=== PATIENT | male | born 1950 | race African-American/Black ===

== ENCOUNTER → 2023-04-25 09:41 | Outpatient (REF) | payer OTHER, SELFPAY | LOC: RAD 09:41 | PROVIDERS: ATTENDING PHYSICIAN Physician Assistant; FAMILY PHYSICIAN Family Medicine | DX: I65.22 Occlusion and stenosis of left carotid artery (principal) | CPT/HCPCS: 93880 ==

== ENCOUNTER 2023-07-18 10:02 | Emergency (ER) | payer OTHER, SELFPAY ==
[2023-07-18 10:14] VITALS: BP 151/97
[2023-07-18 10:38] LABS: % Basophils 0.5 % (0-2); % Immature Granulocytes 0.2 % (0-0.5); % Lymphocytes 23.9 % (20.5-51.1); % Monocytes 9.2 % (1.7-9.3); % Neutrophils 64.2 % (42.2-75.2); Absolute Eosinophils 0.1 10^3/uL (0-0.7); Absolute Lymphocytes 1.4 10^3/uL (1.2-3.4); Absolute Monocytes 0.5 10^3/uL (0.1-0.6); Absolute Neutrophils 3.8 10^3/uL (1.4-6.5); Hematocrit 47.9 % (39.0-52.0); Hemoglobin 16.5 g/dL (13.0-18.0); Mean Corp Hgb Conc. 34.4 g/dL (33.0-37.0); Mean Corpuscular Hgb 31.6 pg (27.0-31.0); Mean Corpuscular Volume 91.8 fL (80.0-94.0); Mean Platelet Volume 9.9 fL (7.4-10.4); Nucleated Red Blood Cells % 0 % (-); Platelet Count 179 10^3/uL (130-400); Red Blood Cell Count 5.22 10^6/uL (4.70-6.10); Red Cell Dist. Width 12.9 % (11.5-14.5); White Blood Cell Count 5.9 10^3/uL (4.8-10.8)
[2023-07-18 10:57] LABS: ALT (SGPT) 17 U/L (0-50); AST (SGOT) 21 U/L (17-59); Albumin 4.2 g/dl (3.5-5.0); Alkaline Phosphatase 96 U/L (38-126); Blood Urea Nitrogen 19 mg/dl (9-20); Calcium 9.7 mg/dl (8.4-10.2); Carbon Dioxide 25 mmol/L (22-30); Chloride 108 mmol/L (98-107); Glucose 108 mg/dl (70-99); Potassium 4.3 mmol/L (3.5-5.1); Sodium 139 mmol/L (135-145); Total Bilirubin 0.5 mg/dl (0.2-1.3); Total Protein 7.3 g/dl (6.3-8.2); eGFR > 60.00
[2023-07-18 11:02] LABS: Troponin I < 0.012 ng/ml
[2023-07-18 11:45] VITALS: BMI 25.1
[2023-07-18 11:50] VITALS: BP 151/84
--- NOTE | 2023-07-18 11:54 | ED.GENMED ---
History of Present Illness
General
Chief Complaint: Chest Pain
Time Seen by Provider: 07/18/23 11:32
Travel History
Have you had any contact with someone who has COVID-19?: No
Do you have any symptoms of coronavirus? Fever > 100 degrees, chills, cough, shortness of breath, sore throat, loss of taste or smell, muscle aches, or headache?: No
History of Present Illness
History of Present Illness:
Suicidal male presents the emergency department for evaluation of left-sided chest pain ongoing for the past week. Pain is not exertional and is worse with palpation and worse after eating. Denies any shortness of breath or pleuritic nature of the
pain. No fevers or chills.
Past History
Past History
ED Past Medical History: HTN and Hypercholesterolemia
ED Past Surgical History: None
Social History
Tobacco: Non-smoker
Alcohol: None
Drug: None
Personal: Single
Review of Systems
Review of Systems
Allergies reviewed?: Yes
All Other Systems: ROS reviewed and negative except as documented in HPI and ROS
Phy Exam
Physical Exam
Physical Exam:
GEN: Well appearing, NAD, WDWN
HEENT: Oral mucosa moist, no scleral icterus
Cardiac: Regular rate and rhythm, no murmurs, left-sided chest pain reproducible on exam
Lung: No respiratory distress, no tachypnea
MSK: No gross deformity or injuries
Skin: Good color, no pallor or jaundice, no rashes
Neuro: AO x3, moves all extremities freely
Psych: Calm, cooperative
Scores
Heart Score for Chest Pain Patients
STEMI patient?: No
History: Slightly or Non-Suspicious
ECG: Nonspecific Repolarization
Age: >/= 65 years
Risk Factors: 1 or 2 Risk Factors
Troponin: </= Normal Limit
Heart Score for Chest Pain Patients: 4
Heart Score Risk: 20.3% MACE over next 6 weeks
Course
Orders/Labs/Results
Orders:
Orders
07/18/23 10:18
Electrocardiogram (*1) Urgent
Reason for Study: Chest Pain
EKG- Treatment ONCE
07/18/23 10:31
CMP [Comprehensive Metabolic Panel] Urgent
Complete Blood Count/With Diff Urgent
Troponin I Urgent
07/18/23 12:34
CR Chest - 2 Views Urgent
Comment:
Reason For Exam: chest pain
07/18/23 13:15
CARDIOLOGY CONSULT Urgent
Consulting Provider: Joss De Oliveira
Was physician already notified: Yes
Abnormal Lab Results
07/18/23
10:31
MCH 31.6 H pg
(27.0-31.0)
Chloride 108 H mmol/L
(98-107)
Glucose 108 H mg/dl
(70-99)
07/18/23 10:31
07/18/23 10:31
Vital Signs
Initial and Last Documented VS:
Initial Vital Signs
Temp Pulse Resp BP Pulse Ox
97.8 F 65 16 151/97 96
07/18/23 10:14 07/18/23 10:14 07/18/23 10:14 07/18/23 10:14 07/18/23 10:14
Last Documented Vital Signs
Temp Pulse Resp BP Pulse Ox
97.8 F 76 18 151/89 96
07/18/23 10:14 07/18/23 14:17 07/18/23 14:17 07/18/23 14:17 07/18/23 11:50
MDM/Problems Addressed
MDM/Problems Addressed:
Patient did have biphasic T waves in V6 that are new compared to past EKGs. He has a negative troponin and his clinical story is not consistent with angina. I did discuss the EKG changes with cardiology who evaluated him at the bedside and will
coordinate for outpatient urgent stress test. No indication for antianginal therapy at this time.
*Critical Care Note
Total Time (30-74mins, 75-104mins- exclusive of procedures): Not Applicable
ED Attending Note
-
Portions of this chart may have been created with voice recognition software.� Occasional wrong word or��sound alike� substitutions may have occurred due to the inherent limitations of voice recognition software.
Discharge Plan
Departure
Patient Disposition: Home (Routine Discharge)
Date of Disposition: 07/18/23
Time of Disposition: 14:54
Patient with high blood pressure during this ER visit?: No
Discharge Problem:
Atypical chest pain
Instructions: Costochondritis (DC)
Prescriptions:
No Action
Allergies Dropps
1 dose PO DAILY
multivitamin Tablet
1 tab PO DAILY
cetirizine [Zyrtec] 10 mg Tablet
5 - 10 mg PO DAILY PRN (Reason: allergies)
prednisone 5 mg Tablet
5 mg PO DIRECTED PRN (Reason: allergies)
amlodipine 2.5 mg Tablet
2.5 mg PO DAILY
aspirin 81 mg Tablet,Chewable
81 mg PO DAILY
tadalafil [Cialis] 20 mg Tablet
20 mg PO DAILY PRN (Reason: sex)
mecobalamin (vitamin B12) [B12 Active] 1,000 mcg Tablet,Chewable
1,000 mcg PO DAILY
Male Inhancement
1 tab PO DAILY PRN (Reason: sex)
Nitrous Oxide
1 tab PO PRN PRN (Reason: sex)
Vitamin C
1 tab PO DAILY
Vitamin D3
1 tab PO DAILY
Referrals:
Joss De Oliveira MD [Active] -
Jean Wilson DO [Family Provider] -
Activity Restrictions/Additional Instructions:
Try using Salonpas once daily for pain relief
Follow up with Dr De Oliveira as we discussed
Interventions
Interventions:
*Risk Screen - Suicide Last Done: 07/18/23 11:45
*General Assessment Last Done: 07/18/23 10:14
*Neglect/Abuse Screening Last Done: 07/18/23 11:45
ED- Fall Risk Assessment Last Done: 07/18/23 15:07
*ED COVID-19 Vaccine History Last Done: 07/18/23 10:14
*Nursing Disposition Last Done: 07/18/23 15:07
ED- Cardiac Assessment Last Done: 07/18/23 11:45
Discharge Date and Time
Discharge Date/Time: 07/18/23 15:07
Print Language: KYRGYZ
--- NOTE | 2023-07-18 13:48 | CON.CAR ---
Addendum entered and electronically signed by Joss De Oliveira MD 07/18/23 15:25:
73 yo male with PMH of carotid stenosis, s/p L CEA, moderately elevated calcium presents to ED with chest pain. He reports there is a pain near the left side of his sternum, which worsens with palpation. There is also a pressure in his left chest
that worsens with eating. It has been occurring intermittently for weeks. The pain does not occur when he rides his bike. Exam with RRR, no murmurs, no edema. TnI <0.012. EKG: NSR, anterolateral T wave abnormality.
Chest pain. Seems mostly atypical, and does not occur with riding his bike. Anterolateral T wave abnormality is new. TnI is <0.012. Does not seem to be ACS. He does have risk factors for CAD. We discussed options, and decided we will pursue
outpatient stress test this week. If pain becomes exertional, he will return to ED.
Addendum entered and electronically signed by KATHY Zarco 07/18/23 15:07:
Dr. De Oliveira and I saw patient together and office will call to arrange below.
Original Note:
Consultation
Consultation Request
Date/Time Consultation Requested: 07/18/23 1315
Date/Time Consultation Performed: 07/18/23 1330
Requesting Provider: Ej Zepeda PA-C
Performing Provider: Rohini CHAVEZ for Dr. De Oliveira
Reason for Consultation: chest discomfort
Medical History
-
Chief Complaint: chest discomfort.
History of Present Illness:
73 y/o male with hypertension, dyslipidemia, pre-DM, and carotid artery disease with hx L CEA who is here from his PCP office for evaluation. Briefly, he recently was in [place] for a work trip about 2 weeks ago. After a week later, he started to
notice some left-sided chest pressure intermittently. It is not associated with exertion. He does think it often happens after meals. He is not sure how many times it happens per day. He is sore to palpation. He denies any SOB, but has had a head
cold recently. He went to his PCP today and EKG showed T wave changes laterally. Troponin here is normal. He is in no distress at the time of my assessment.
Past Medical History
Past Medical History: HTN, Hypercholesterolemia, NIDDM and Other (carotid disease)
Social History
Tobacco: Non-Smoker
Employment: Employed
Family History
Family History: CAD (mom with coronary stents)
Allergies / Home Medications
Allergy/AdvReac Type Severity Reaction Status Date / Time
omeprazole [From Prilosec] Allergy tight Verified 07/18/23 10:18
chest
tight
throat
pollen extracts Allergy hayfever Verified 07/18/23 10:18
�Medication �Instructions �Recorded �Confirmed �Type
Allergies Dropps 1 dose PO DAILY 08/25/22 08/31/22 History
Male Inhancement 1 tab PO DAILY PRN sex 08/25/22 08/31/22 History
Nitrous Oxide 1 tab PO PRN PRN sex 08/25/22 08/31/22 History
Vitamin C 1 tab PO DAILY Supplement 08/25/22 08/31/22 History
Vitamin D3 1 tab PO DAILY Supplement 08/25/22 08/31/22 History
amlodipine 2.5 mg tablet 2.5 mg PO DAILY Blood Pressure 08/25/22 08/31/22 History
aspirin 81 mg chewable tablet 81 mg PO DAILY Blood Clot 08/25/22 08/31/22 History
Prevention/Tx
cetirizine 10 mg tablet (Zyrtec) 5 - 10 mg PO DAILY PRN allergies 08/25/22 08/31/22 History
mecobalamin (vitamin B12) 1,000 1,000 mcg PO DAILY Supplement 08/25/22 08/31/22 History
mcg chewable tablet (B12 Active)
multivitamin 1 tab PO DAILY Supplement 08/25/22 08/31/22 History
prednisone 5 mg tablet 5 mg PO DIRECTED PRN allergies 08/25/22 08/31/22 History
tadalafil 20 mg tablet (Cialis) 20 mg PO DAILY PRN sex 08/25/22 08/25/22 History
Review of Systems
-
History Source: Patient
All other systems: Negative unless noted
Constitutional: Other ('head cold' with sore throat and stuffiness)
Cardiac: Chest Pain
Physical Exam
Vital Signs
Temp Pulse Resp BP Pulse Ox
97.8 F 67 16 151/84 96
07/18/23 10:14 07/18/23 11:50 07/18/23 11:50 07/18/23 11:50 07/18/23 11:50
Lab Results
07/18/23 10:31
07/18/23 10:31
Troponin I < 0.012 ng/ml 07/18/23 10:31
Physical Exam
General: Well Developed, Well Nourished and No Apparent Distress
HEENT: Normocephalic and Anicteric
Respiratory: Clear and Non Labored Respirations
Cardiac: Regular Rhythm
Breast: Deferred by me
GI: Soft, Non Distended and Normal Bowel Sounds
Musculoskeletal: No Edema
Skin: Warm and Dry
Neuro: AO x 3
Psych: Calm
Impression / Plan
-
Chest discomfort:
-etiology unclear
-description as detailed in HPI
-trop is normal
-EKG with t wave changes as noted
-would recommend OP nuclear exercise stress test this week- will have office call to arrange
HTN:
-stable
-continue CCB
Dyslipidemia:
-does not tolerate statins, also reports he did not tolerate Repatha (all myalgias)
-Dr. Ortiz considering bempedoic acid or inclisiran next
hx carotid artery disease:
-stable s/p CEA
-follows with Dr. Carver
-on ASA
Data Reviewed
-
EKG: Tracing Personally Visualized and interpreted (SR with non-specific t abnormality V5-V6)
Medical Tests (Nuc Med, Echo etc): Report Reviewed by me (stress test (echo) 10/06/21: Normal Stress Echocardiogram with normal hemodynamic response to exercise. Overall, low risk stress test. Abnormal ECG response to exercise. ECG was abnormal
in exercise nuclear stress test from 2011 as well. Stress imaging is low risk.)
Labs: Labs Reviewed by me
[2023-07-18 14:17] VITALS: BP 151/89
== END 2023-07-18 15:07 | disposition home or self-care (01) ==
LOC: EMR 10:02
PROVIDERS: CONSULT PHYSICIAN Internal Medicine; EMERGENCY PHYSICIAN Emergency Medicine; FAMILY PHYSICIAN Family Medicine
DX: R07.89 Other chest pain (principal); I10 Essential (primary) hypertension; E78.00 Pure hypercholesterolemia, unspecified
CPT/HCPCS: 99285; 71046; 80053; 84484; 85025; 93005

== ENCOUNTER → 2023-07-22 08:04 | Outpatient (REF) | payer OTHER, SELFPAY | LOC: DHCBC/DCA 08:04 | PROVIDERS: ATTENDING PHYSICIAN Internal Medicine Cardiovascular Disease; FAMILY PHYSICIAN Family Medicine | DX: R94.31 Abnormal electrocardiogram [ECG] [EKG] (principal) | CPT/HCPCS: 78452; 93017; A9500 ==

== ENCOUNTER → 2023-10-12 07:47 | Outpatient (REF) | payer OTHER, SELFPAY | LOC: HWRAD 07:47 | PROVIDERS: ATTENDING PHYSICIAN Urology; FAMILY PHYSICIAN Family Medicine | DX: R10.84 Generalized abdominal pain (principal) | CPT/HCPCS: 76775 ==

== ENCOUNTER → 2023-10-18 10:03 | Outpatient (REF) | payer OTHER, SELFPAY | LOC: RAD 10:03 | PROVIDERS: ATTENDING PHYSICIAN Surgery Vascular Surgery; FAMILY PHYSICIAN Family Medicine | DX: I65.22 Occlusion and stenosis of left carotid artery (principal) | CPT/HCPCS: 93880 ==

== ENCOUNTER → 2023-11-28 09:29 | Outpatient (REF) | payer OTHER, SELFPAY | LOC: HWRAD 09:29 | PROVIDERS: ATTENDING PHYSICIAN Family Medicine | DX: M25.532 Pain in left wrist (principal); M25.512 Pain in left shoulder | CPT/HCPCS: 73030; 73100 ==

== ENCOUNTER 2024-02-09 16:23 | Emergency (ER) | payer OTHER, SELFPAY ==
[2024-02-09 16:25] VITALS: BP 147/92
--- NOTE | 2024-02-09 16:59 | ED.GENMED ---
History of Present Illness
<Kinza Hercules PA-C - Last Filed: 02/09/24 20:35>
General
Chief Complaint: Dizziness
Source: patient
Exam Limitations: none
Time Seen by Provider: 02/09/24 16:29
Nursing documentation reviewed up to this point in time: agreed with
History of Present Illness
History of Present Illness:
Patient is a 73 year old male with hx HTN, prostate cancer presenting to the emergency department for multiple complaints today. He states that he has had ongoing lightheadedness over the past few months which has become more frequent. He states
that he notices the symptoms most prominently when he goes from sitting to standing or with quick turn of his head. Patient denies any true dizziness/spinning sensation. No associated diplopia, dysarthria, ataxia. Patient has been following with
his primary care regarding this and is scheduled to see neurology next year.
In addition�patient states that he was recently treated for a yeast infection of his penis. That has since cleared although now he is having a burning sensation with urination. He did take Azo for 2 days without much improvement. He also feels as
if he is here frequently.
Lastly�patient states that he has been increasingly nauseous after eating for the past many months. He feels that he is losing weight because of this. He denies any associated fever, chills, abdominal pain, or changes in bowel movements.
Past History
<Kinza Hercules PA-C - Last Filed: 02/09/24 20:35>
Past History
ED Past Medical History: HTN and Hypercholesterolemia
ED Past Surgical History: None
Social History
Tobacco: Non-smoker
Alcohol: None
Drug: None
Personal: Single
Review of Systems
<Kinza Hercules PA-C - Last Filed: 02/09/24 20:35>
Review of Systems
Allergies reviewed?: Yes
All Other Systems: ROS reviewed and negative except as documented in HPI and ROS
Phy Exam
<Kinza Hercules PA-C - Last Filed: 02/09/24 20:35>
Physical Exam
Physical Exam:
Vitals: Mildly hypertensive, otherwise vital signs stable. Afebrile
General: Patient is well appearing, no acute distress. Nontoxic appearing
Skin: Warm and dry, no rashes or lesions
Head: Normocephalic, atraumatic
Eyes: Sclera nonicteric. EOMs intact. No nystagmus. Visual goodwin intact
Throat: Protecting airway
Neck: Normal ROM, no cervical spine tenderness, no meningismus
Cardiac: Regular rate and rhythm, no murmurs.
Pulm: Normal respiratory effort, no wheezes, rales, rhonchi heard on exam.
Abdomen: Abdomen soft. No abdominal tenderness. Nondistended.
: Uncircumcised. No phimosis or paraphimosis. Very mild erythema of the ureteral meatus. No purulent urethral discharge. No inguinal lymphadenopathy.
Extremities: No evidence of cyanosis or edema. Palpable DP pulses
Neuro: AAOx3. Grossly intact.
Psychiatric: Normal affect.
Course
<Kinza Hercules PA-C - Last Filed: 02/09/24 20:35>
Orders/Labs/Results
Orders:
Orders
02/09/24 16:46
Electrocardiogram (*1) Urgent
Reason for Study: Vertigo / Dizzy
EKG- Treatment ONCE
Orthostatic VS- Treatment ONCE
02/09/24 17:54
Complete Blood Count/With Diff Urgent
Comprehensive Metabolic Panel Urgent
Urinalysis Reflex To Culture Urgent
Date Specimen was Collected: 02/09/24
Time Specimen was Collected: 17:30
Chlamydia/GC by PCR Urgent
MARY Source: U
Specimen Description:
Date Specimen was Collected: 02/09/24
Time Specimen was Collected: 17:30
Comment: ADD ON
Urine Culture Urgent
MARY Source: U
Specimen Description:
Date Specimen was Collected: 02/09/24
Time Specimen was Collected: 17:30
Comment: ADD ON
02/09/24 19:07
Add On - Microbiology Urgent
Tests Added?: urine culture
02/09/24 19:28
Doxycycline [Vibramycin] 100 mg PO NOW STA
02/09/24 19:34
Add On - Microbiology Urgent
Tests Added?: urine GC/chlamydia
Abnormal Lab Results
02/09/24
17:54
MCV 97.2 H fL
(80.0-94.0)
MCH 32.2 H pg
(27.0-31.0)
02/09/24 17:54
02/09/24 17:54
Vital Signs
Initial and Last Documented VS:
Initial Vital Signs
Temp Pulse Resp BP Pulse Ox
98.2 F 73 16 147/92 98
02/09/24 16:25 02/09/24 16:25 02/09/24 16:25 02/09/24 16:25 02/09/24 16:25
Last Documented Vital Signs
Temp Pulse Resp BP Pulse Ox
98.2 F 74 16 145/97 96
02/09/24 16:25 02/09/24 19:58 02/09/24 19:58 02/09/24 19:58 02/09/24 19:58
<Kwasi Martinez, DO - Last Filed: 02/09/24 19:08>
Orders/Labs/Results
Orders:
Orders
02/09/24 16:46
Electrocardiogram (*1) Urgent
Reason for Study: Vertigo / Dizzy
EKG- Treatment ONCE
Orthostatic VS- Treatment ONCE
02/09/24 17:54
Complete Blood Count/With Diff Urgent
Comprehensive Metabolic Panel Urgent
Urinalysis Reflex To Culture Urgent
Date Specimen was Collected: 02/09/24
Time Specimen was Collected: 17:30
Chlamydia/GC by PCR Urgent
MARY Source: U
Specimen Description:
Date Specimen was Collected: 02/09/24
Time Specimen was Collected: 17:30
Comment: ADD ON
Urine Culture Urgent
MARY Source: U
Specimen Description:
Date Specimen was Collected: 02/09/24
Time Specimen was Collected: 17:30
Comment: ADD ON
02/09/24 19:07
Add On - Microbiology Urgent
Tests Added?: urine culture
02/09/24 19:28
Doxycycline [Vibramycin] 100 mg PO NOW STA
02/09/24 19:34
Add On - Microbiology Urgent
Tests Added?: urine GC/chlamydia
Abnormal Lab Results
02/09/24
17:54
MCV 97.2 H fL
(80.0-94.0)
MCH 32.2 H pg
(27.0-31.0)
02/09/24 17:54
02/09/24 17:54
Vital Signs
Initial and Last Documented VS:
Initial Vital Signs
Temp Pulse Resp BP Pulse Ox
98.2 F 73 16 147/92 98
02/09/24 16:25 02/09/24 16:25 02/09/24 16:25 02/09/24 16:25 02/09/24 16:25
Last Documented Vital Signs
Temp Pulse Resp BP Pulse Ox
98.2 F 74 16 145/97 96
02/09/24 16:25 02/09/24 19:58 02/09/24 19:58 02/09/24 19:58 02/09/24 19:58
<Kinza Hercules PA-C - Last Filed: 02/09/24 20:35>
MDM/Problems Addressed
Differential Diagnosis Includes:
Not limited to: Viral illness, dehydration, orthostatic hypotension, UTI, urethritis, etc.
MDM/Problems Addressed:
73-year-old male with history as documented presenting with dysuria following recent treatment for balanitis. No fever, chills. No abdominal pain. Does note some chronic lightheadedness and nausea although denies any true spinning sensation. No
other neurologic symptoms. Patient mildly hypertensive, otherwise vital signs are stable. He is afebrile. Physical exam as above. Patient very well-appearing, conversational and nontoxic. Cardio/pulmonary assessment unremarkable. No focal
neurologic deficits. Patient without any true dizzy/spinning sensation. He is ambulating without difficulty and room to/from bathroom. Do not suspect central process. Will check basic labs, urine. Will obtain EKG and check orthostatic vital signs.
Update: Orthostatic vital signs obtained without any evidence of orthostasis. Labs noted. No clinically significant abnormalities. Chemistry normal. Do not suspect acute intra-abdominal process given patient is afebrile with no leukocytosis.
Feel patient is stable for discharge from the standpoint with primary care follow-up.
Urine shows no signs of infection. Into discuss findings with patient who now expresses that he has concern for possible STD after recent separation from . Given recently treated balanitis and mild erythema of urethral meatus without any
purulent discharge�will treat patient for urethritis. Do not suspect gonococcal urethritis. Will add on GC/chlamydia to urine specimen. Will start patient on doxycycline pending chlamydia results. He will follow closely with urology. Advised to
continue using topical ointments as recommended by urology.
Chronic conditions affecting care:
Hypertension
Acute Exacerbation and/or Progression of Chronic Illness:
Acutely hypertensive
<Kinza Hercules PA-C - Last Filed: 02/09/24 20:35>
*Pulse Oximetry
Patient hypoxic: no
*EKG
Interpreted by ED Provider?: Yes
EKG Intrepretation Date: 02/09/24
Interpretation: abnormal
Comparison EKG: no changes
Heart Rate: 67
Rate: normal
Rhythm: sinus
Darling: normal axis
Interval: normal QT interval
QRS Pattern: normal QRS
Ischemia: non-specific ST changes
*Pipe Connector Interpretation
Rate: Pipe Connector- N/A
*Critical Care Note
Total Time (30-74mins, 75-104mins- exclusive of procedures): Not Applicable
ED Attending Note
<Kinza Hercules PA-C - Last Filed: 02/09/24 20:35>
-
Portions of this chart may have been created with voice recognition software.� Occasional wrong word or��sound alike� substitutions may have occurred due to the inherent limitations of voice recognition software.
<Kwasi Martinez DO - Last Filed: 02/09/24 19:08>
ED Attending Note
Patient seen and examined by attending physician: Yes
I performed the substantive portion of visit, reviewed & personally made and approve the management plan that is documented in note by myself or CHRISTIN.: Yes
ED Attending Note:
Seen with RUSS examined independently 73-year-old male uncircumcised multiple complaints dizziness when standing, also pain in his penis, treated with a sounds of balanitis
Discharge Plan
Departure
Patient Disposition: Home (Routine Discharge)
Date of Disposition: 02/09/24
Time of Disposition: 19:29
Patient with high blood pressure during this ER visit?: Yes
Condition: Good
Covid-19: Not Applicable
Discharge Problem:
Urethritis
Instructions: Urethritis (DC), BLOOD PRESSURE
Prescriptions:
New
doxycycline hyclate 100 mg tablet
100 mg PO BID 7 Days Qty: 14 0RF
No Action
Allergies Dropps
1 dose PO DAILY
multivitamin Tablet
1 tab PO DAILY
cetirizine [Zyrtec] 10 mg Tablet
5 - 10 mg PO DAILY PRN (Reason: allergies)
prednisone 5 mg Tablet
5 mg PO DIRECTED PRN (Reason: allergies)
amlodipine 2.5 mg Tablet
2.5 mg PO DAILY
aspirin 81 mg Tablet,Chewable
81 mg PO DAILY
tadalafil [Cialis] 20 mg Tablet
20 mg PO DAILY PRN (Reason: sex)
mecobalamin (vitamin B12) [B12 Active] 1,000 mcg Tablet,Chewable
1,000 mcg PO DAILY
Male Inhancement
1 tab PO DAILY PRN (Reason: sex)
Nitrous Oxide
1 tab PO PRN PRN (Reason: sex)
Vitamin C
1 tab PO DAILY
Vitamin D3
1 tab PO DAILY
Referrals:
Jean Wilson DO [Family Provider] -
Activity Restrictions/Additional Instructions:
Return to the emergency department with any fevers, chills, intractable nausea/vomiting, inability tolerate food/, inability to urinate, worsening in current symptoms, or any other concerns
-As discussed�we have added a test to your urine sample. Will call you if this is positive.
-An antibiotic has been sent to your pharmacy for you to take twice a day for the next week. Continue to apply your ointment to your penis as directed by your urologist. You should follow-up with your urologist in the next few days for further
evaluation/management
-It is important to stay well-hydrated.
-Follow-up with your urologist for further evaluation/management. In addition�you should follow-up with your primary care doctor
Monitor your symptoms closely and return to the emergency department with any acute worsening/new symptoms or any other concerns
Interventions
Interventions:
*Risk Screen - Suicide Last Done: 02/09/24 16:25
*General Assessment Last Done: 02/09/24 17:48
*Neglect/Abuse Screening Last Done: 02/09/24 16:25
ED- Fall Risk Assessment Last Done: 02/09/24 17:48
*ED COVID-19 Vaccine History Last Done: 02/09/24 17:48
*Nursing Disposition Last Done: 02/09/24 20:01
ED- Cardiac Assessment Last Done: 02/09/24 17:48
ED- Neurological Assessment Last Done: 02/09/24 17:48
ED Swallowing Screen Last Done: 02/09/24 17:48
Discharge Date and Time
Discharge Date/Time: 02/09/24 20:02
Print Language: ICELANDIC
[2024-02-09 17:27] VITALS: BP 143/80; BP 146/81; BP 148/79; PULSE 68; PULSE 75
[2024-02-09 17:48] VITALS: BMI 24.0
[2024-02-09 18:01] LABS: % Basophils 0.3 % (0-2); % Immature Granulocytes 0.2 % (0-0.5); % Lymphocytes 22.6 % (20.5-51.1); % Neutrophils 66.9 % (42.2-75.2); Absolute Eosinophils 0.1 10^3/uL (0-0.7); Absolute Lymphocytes 1.3 10^3/uL (1.2-3.4); Absolute Monocytes 0.5 10^3/uL (0.1-0.6); Absolute Neutrophils 3.9 10^3/uL (1.4-6.5); Hemoglobin 15.9 g/dL (13.0-18.0); Mean Corp Hgb Conc. 33.1 g/dL (33.0-37.0); Mean Corpuscular Hgb 32.2 pg (27.0-31.0); Mean Corpuscular Volume 97.2 fL (80.0-94.0); Mean Platelet Volume 10.2 fL (7.4-10.4); Nucleated Red Blood Cells % 0 % (-); Platelet Count 172 10^3/uL (130-400); Red Blood Cell Count 4.94 10^6/uL (4.70-6.10); White Blood Cell Count 5.8 10^3/uL (4.8-10.8)
[2024-02-09 18:02] LABS: Urine Albumin Negative (Neg - Trace); Urine Bilirubin Negative (Negative); Urine Character Clear (Clear); Urine Color Yellow; Urine Glucose Negative (Negative); Urine Ketone Negative (Negative); Urine Leukocyte Negative (Negative); Urine Nitrite Negative (Negative); Urine Occult Blood Negative (Negative); Urine Urobilinogen Negative (Neg - 1+)
[2024-02-09 18:33] LABS: ALT (SGPT) 20 U/L (0-50); AST (SGOT) 21 U/L (17-59); Albumin 4.3 g/dl (3.5-5.0); Alkaline Phosphatase 82 U/L (38-126); Blood Urea Nitrogen 17 mg/dl (9-20); Calcium 9.9 mg/dl (8.4-10.2); Carbon Dioxide 28 mmol/L (22-30); Chloride 104 mmol/L (98-107); Estimated Creatinine Clearance 71 ml/min; Glucose 93 mg/dl (70-99); Potassium 4.4 mmol/L (3.5-5.1); Sodium 140 mmol/L (135-145); Total Bilirubin 0.6 mg/dl (0.2-1.3); Total Protein 7.1 g/dl (6.3-8.2); eGFR > 60.00
[2024-02-09] MEDS: VIBRAMYCIN 100 MG PO (19:44)
[2024-02-09 19:58] VITALS: BP 145/97
== END 2024-02-09 20:02 | disposition home or self-care (01) ==
LOC: EMR 16:23
PROVIDERS: Physician Assistant; EMERGENCY PHYSICIAN Emergency Medicine; FAMILY PHYSICIAN Family Medicine
DX: N34.2 Other urethritis (principal); I10 Essential (primary) hypertension
CPT/HCPCS: 99284; 80053; 81003; 85025; 87086; 87491; 87591; 93005

== ENCOUNTER → 2024-03-02 13:32 | Outpatient (REF) | payer OTHER, SELFPAY | LOC: HWRAD 13:32 | PROVIDERS: ATTENDING PHYSICIAN Internal Medicine Gastroenterology; FAMILY PHYSICIAN Family Medicine; REFERRING PHYSICIAN Internal Medicine | DX: R63.4 Abnormal weight loss (principal); R10.84 Generalized abdominal pain | CPT/HCPCS: 76700; 93975 ==

== ENCOUNTER → 2024-03-03 07:25 | Outpatient (REF) | payer OTHER, SELFPAY | LOC: PAVMRI 07:25 | PROVIDERS: ATTENDING PHYSICIAN Family Medicine | DX: I67.81 Acute cerebrovascular insufficiency (principal); R59.9 Enlarged lymph nodes, unspecified; Z85.46 Personal history of malignant neoplasm of prostate | CPT/HCPCS: 70551 ==

== ENCOUNTER → 2024-03-05 13:06 | Outpatient (REF) | payer OTHER, SELFPAY | LOC: RAD 13:06 | PROVIDERS: ATTENDING PHYSICIAN Family Medicine | DX: R63.4 Abnormal weight loss (principal); Z85.46 Personal history of malignant neoplasm of prostate | CPT/HCPCS: 71270; 74178; Q9967 ==

== ENCOUNTER → 2024-05-07 13:53 | Outpatient (REF) | payer OTHER, SELFPAY | LOC: RAD 13:53 | PROVIDERS: ATTENDING PHYSICIAN Registered Nurse; FAMILY PHYSICIAN Family Medicine | DX: I65.22 Occlusion and stenosis of left carotid artery (principal) | CPT/HCPCS: 93880 ==

== ENCOUNTER → 2024-05-22 22:00 | Outpatient (REF) | payer OTHER, SELFPAY | LOC: DHSLP 22:00 | PROVIDERS: ATTENDING PHYSICIAN Internal Medicine; FAMILY PHYSICIAN Family Medicine | DX: G47.19 Other hypersomnia (principal); R06.83 Snoring | CPT/HCPCS: 95810 ==

== ENCOUNTER → 2024-11-14 07:49 | Outpatient (REF) | payer OTHER, SELFPAY | LOC: RAD 07:49 | PROVIDERS: ATTENDING PHYSICIAN Registered Nurse; FAMILY PHYSICIAN Family Medicine | DX: I65.22 Occlusion and stenosis of left carotid artery (principal) | CPT/HCPCS: 93880 ==

== ENCOUNTER → 2024-11-16 06:49 | Outpatient (REF) | payer OTHER, SELFPAY | LOC: PAVMRI 06:49 | PROVIDERS: ATTENDING PHYSICIAN Orthopaedic Surgery; FAMILY PHYSICIAN Family Medicine | DX: M54.50 Low back pain, unspecified (principal) | CPT/HCPCS: 72148 ==